=== PATIENT | male | born 1990 | race Caucasian/White ===

== ENCOUNTER 2017-03-06 09:40 | Emergency (ER) | payer OTHER ==
[~2017-03-06] VITALS: Ht 185.4 cm; Wt 104.3 kg
== END 2017-03-06 10:48 | disposition home or self-care (01) ==
LOC: ED 09:40
DX: S83.91XA Sprain of unspecified site of right knee, initial encounter (principal); X50.1XXA Overexertion from prolonged static or awkward postures, initial encounter
CPT/HCPCS: 99283

== ENCOUNTER 2017-11-13 09:51 | Emergency (ER) | payer OTHER ==
[~2017-11-13] VITALS: Ht 185.4 cm; Wt 95.2 kg
[2017-11-13] MEDS ORDERED: CLARITIN5 MG PO (10:47)
[2017-11-13] MEDS ORDERED: KETOROLAC TROME10 MG PO (11:32)
== END 2017-11-13 11:39 | disposition home or self-care (01) ==
LOC: ED 09:51
DX: M25.561 Pain in right knee (principal)
CPT/HCPCS: 73560; 99283